=== PATIENT | male | born 1955 | race African-American/Black ===

== ENCOUNTER 2018-09-07 23:36 | Inpatient (IN) | payer MEDICARE ==
[~2018-09-07] VITALS: Ht 185.4 cm; Wt 131.5 kg
--- NOTE | 2018-09-08 | NUR ---
Pt brought in via ambulance from [facility] WITH C/O COMBATIVE AND BACK PAIN LOWER BACK AT 8/10 SINCE TODAY. Pt is combative with staff, yelling and using right arm to swing around, pt placed in soft R wrist restraints. placed order. Skin intact, no swelling, pulses palpable, will continue to monitor
[2018-09-08] MEDS ORDERED: CYMBALTA60 MG ORAL (00:28)
[2018-09-08] MEDS ORDERED: QUETIAPINE FUM100 MG ORAL (00:28)
[2018-09-08] MEDS ORDERED: TEMAZEPAM15 MG ORAL (00:28)
[2018-09-08] MEDS ORDERED: MELATONIN5 M2 SL (00:28)
[2018-09-08] MEDS ORDERED: LOVENOX10 MG SUBQ (00:43)
[2018-09-08] MEDS ORDERED: LEVEMIR FL100 UNIT/1 SUBQ (00:43)
[2018-09-08] MEDS ORDERED: MULTIVITAMINS1 EAC2 ORAL (00:43)
[2018-09-08] MEDS ORDERED: FLOMAX0.4 MG ORAL (00:43)
[2018-09-08] MEDS ORDERED: FENOFIBRATE54 MG ORAL (00:43)
[2018-09-08] MEDS ORDERED: VITAMIN D31000 UNI1 PO (00:43)
[2018-09-08] MEDS ORDERED: COREG25 MG ORAL (00:43)
[2018-09-08] MEDS ORDERED: GLIPIZIDE5 MG ORAL (00:43)
[2018-09-08] MEDS ORDERED: VITAMIN C500 M1 ORAL (00:43)
[2018-09-08] MEDS ORDERED: TRADJENTA5 MG PO (00:43)
[2018-09-08] MEDS ORDERED: TRILEPTAL600 MG PO (00:43)
[2018-09-08] MEDS ORDERED: METFORMIN HCL500 M1 ORAL (00:43)
[2018-09-08] MEDS ORDERED: LACTULOSE20 GM/301 ORAL (00:43)
[2018-09-08 01:00] VITALS: BP 145/98
[2018-09-08 01:28] LABS: EOSINOPHILS % (AUTO) 2.5 % (0.0-3.0); HEMOGLOBIN 16.3 G/DL (14.2-18.0); LYMPHOCYTES % (AUTO) 49.5 % (20.0-45.0); MEAN CORPUSCULAR VOLUME 93 FL (80-99); MONOCYTES % (AUTO) 5.8 % (1.0-10.0); NEUTROPHILS % (AUTO) 41.2 % (45.0-75.0); PLATELET COUNT 150 K/UL (150-450); RED BLOOD COUNT 5.25 M/UL (4.70-6.10); RED CELL DISTRIBUTION WIDTH 13.1 % (11.6-14.8); WHITE BLOOD COUNT 9.8 K/UL (4.8-10.8)
[2018-09-08 01:45] LABS: ANION GAP 8 mmol/L (5-15); BLOOD UREA NITROGEN 14 mg/dL (7-18); CALCIUM 9.3 MG/DL (8.5-10.1); CARBON DIOXIDE 27 MMOL/L (21-32); CHLORIDE 107 MMOL/L (98-107); CREATININE 1.5 MG/DL (0.55-1.30); POTASSIUM 3.4 MMOL/L (3.5-5.1); SODIUM 142 MMOL/L (136-145)
--- NOTE | 2018-09-08 01:53 | Emergency Room Report ---
History of Present Illness General Chief Complaint: Behavioral Complaint Source: EMS, PMD Present Illness HPI Patient is sent in by of his combativeness. In addition to that he has uncontrolled back pain. He's had a stroke 5 years ago. He has left-sided hemiparesis. It's unknown as to what medications he received prior to coming in. His doctor called and requested that we evaluate him and administer analgesia if indicated. According to S transport, patient O X 2. Patient not answering questions and no further history available. H/O CVA H/O seizures H/O diabetes - insulin and oral meds H/O psych - seroquel and respirdal Allergies: Coded Allergies: PENICILLINS (Verified Allergy, Unknown, 09/08/18) Patient History Limited by: medical condition Past Medical History: see triage record, old chart reviewed Social History: Denies: smoking, alcohol use Social History Narrative SNF Reviewed Nursing Documentation: PMH: Agreed; PSxH: Agreed Nursing Documentation-PMH Past Medical History Deferred: Pt Cognitively Impaired Hx Hypertension: Yes Hx COPD: Yes Hx Dialysis: No - BPH History Of Psychiatric Problem: Yes - bipolar, schizophrenia, anxiety Hx Cerebrovascular Accident: Yes - LEFT SIDE WEAKNESS Hx Seizures: Yes Review of Systems All Other Systems: limited Physical Exam Vital Signs Date Time Temp Pulse Resp B/P (MAP) Pulse Ox O2 Delivery O2 Flow Rate FiO2 09/07/18 23:59 98.1 104 16 169/103 (125) 92 Room Air General Appearance: non-toxic, lethargic, Chronically Ill Head: normocephalic, atraumatic Eyes: bilateral eye PERRL, bilateral eye Scleral Injection ENT: moist mucus membranes - no lingual trauma, + gag Neck: supple Respiratory: lungs clear, normal breath sounds Cardiovascular #1: regular rate, rhythm, no edema Cardiovascular #2: 2+ radial (R) Gastrointestinal: non tender, soft, decreased bowel sounds Genitourinary: no CVA tenderness Musculoskeletal: other - flaccid L - initially, not respond to back pain, but + increased combativeness with R SLR Neurologic: motor weakness - L hemiparesis, sensory deficit - L sided, but + R Psychiatric: other - stupor, but reacts to pain R with kicking and attempting to punch Skin: normal color, no rash Medical Decision Making Diagnostic Impression: Primary Impression: Altered level of consciousness Additional Impressions: Combative behavior Probable post-ictal UTI (urinary tract infection) Qualified Codes: N30.00 - Acute cystitis without hematuria Spinal stenosis Qualified Codes: M48.061 - Spinal stenosis, lumbar region without neurogenic claudication Schizophrenia Qualified Codes: F20.9 - Schizophrenia, unspecified ER Course The patient is sent in for evaluation of back pain and combativeness. Patient is unresponsive aside from painful stimulus on right side. It's impossible to be able to treat him with pain medication at this time. In addition to that due to his stupor we need to exclude bleed, fracture, electrolyte imbalance, sepsis, acute myocardial infarction amongst others. The patient will be evaluated with CT the head, chest x-ray lumbar CT and labs with urinalysis. The patient will be treated with IV hydration. A venous blood gas will be obtained and a CO2 monitor will be applied to the patient. The patient is combative and striking out with his right foot and hand. He is paralyzed on the left-hand side. Non-behavioral restraints ordered. EKG was sinus rhythm with premature supraventricular complexes. Nonspecific ST- T wave changes without acute injury. Labs unremarkable except for mild renal insufficiency, neg troponin, pyuria. Venous ABG with adequate ventilation. CT head with old stroke. Lumbar spine with spinal stenosis. Antibiotics begun for UTI. Completely alert and cooperative. Probable seizure with postictal combativeness. Will observe telemetry. Discussed with Dr. [place] operations trainer for Dr. Burleson. Consider check valproic acid level. Laboratory Tests Test 09/08/18 00:26 09/08/18 01:20 09/08/18 04:00 Venous Blood pH 7.491 Venous Blood Partial Pressure CO2 28.8 Venous Blood Partial Pressure O2 56 Venous Blood HCO3 21.5 Venous Blood Total Carbon Dioxide 28.8 Venous Bld O2 Saturation (Measured) Pending Venous Blood Oxygen Saturation 92.1 Venous Blood Base Excess -0.6 Methemoglobin 0.4 Sodium (Blood Gas) Pending White Blood Count 9.8 K/UL (4.8-10.8) Red Blood Count 5.25 M/UL (4.70-6.10) Hemoglobin 16.3 G/DL (14.2-18.0) Hematocrit 49.0 % (42.0-52.0) Mean Corpuscular Volume 93 FL (80-99) Mean Corpuscular Hemoglobin 31.0 PG (27.0-31.0) Mean Corpuscular Hemoglobin Concent 33.2 G/DL (32.0-36.0) Red Cell Distribution Width 13.1 % (11.6-14.8) Platelet Count 150 K/UL (150-450) Mean Platelet Volume 9.3 FL (6.5-10.1) Neutrophils (%) (Auto) 41.2 % (45.0-75.0) L Lymphocytes (%) (Auto) 49.5 % (20.0-45.0) H Monocytes (%) (Auto) 5.8 % (1.0-10.0) Eosinophils (%) (Auto) 2.5 % (0.0-3.0) Basophils (%) (Auto) 1.0 % (0.0-2.0) Sodium Level 142 MMOL/L (136-145) Potassium Level 3.4 MMOL/L (3.5-5.1) L Chloride Level 107 MMOL/L (98-107) Carbon Dioxide Level 27 MMOL/L (21-32) Anion Gap 8 mmol/L (5-15) Blood Urea Nitrogen 14 mg/dL (7-18) Creatinine 1.5 MG/DL (0.55-1.30) H Estimate Glomerular Filtration Rate 57.8 mL/min (>60) Glucose Level 130 MG/DL (74-106) H Calcium Level 9.3 MG/DL (8.5-10.1) Total Bilirubin 0.3 MG/DL (0.2-1.0) Aspartate Amino Transferase (AST) 23 U/L (15-37) Alanine Aminotransferase (ALT) 36 U/L (12-78) Alkaline Phosphatase 64 U/L (46-116) Total Creatine Kinase 159 U/L (26-308) Troponin I 0.038 ng/mL (0.000-0.056) Total Protein 8.5 G/DL (6.4-8.2) H Albumin 3.5 G/DL (3.4-5.0) Globulin 5.0 g/dL Albumin/Globulin Ratio 0.7 (1.0-2.7) L Thyroid Stimulating Hormone (TSH) 0.650 uiU/mL (0.358-3.740) Salicylates Level 4.6 ug/mL (2.8-20) Acetaminophen Level < 2 MCG/ML (10-30) L Serum Alcohol < 3 mg/dL Urine Color Pending Urine Appearance Pending Urine pH Pending Urine Specific [place] Pending Urine Protein Pending Urine Glucose (UA) Pending Urine Ketones Pending Urine Blood Pending Urine Nitrite Pending Urine Bilirubin Pending Urine Urobilinogen Pending Urine Leukocyte Esterase Pending Urine Opiates Screen Pending Urine Barbiturates Screen Pending Phencyclidine (PCP) Screen Pending Urine Amphetamines Screen Pending Urine Benzodiazepines Screen Pending Urine Cocaine Screen Pending Urine Marijuana (THC) Screen Pending EKG Diagnostic Results Rate: normal Rhythm: NSR ST Segments: no acute changes Rhythm Strip Diag. Results EP Interpretation: yes Rhythm: NSR, no PVC's, other - Premature supraventricular CT/MRI/US Diagnostic Results CT/MRI/US Diagnostic Results #1: Imaging Test Ordered: head Impression Impression: Negative for acute intracranial bleed or mass effect Large old right middle cerebral artery distribution infarct Generalized mild age-related volume loss CT/MRI/US Diagnostic Results #2: Imaging Test Ordered: L spine Impression Partial sacralization of L5. No fracture or malalignment. Severe DJD D within the lumbar spine. Spinal stenosis was pronounced L2-3 and L3-4. Last Vital Signs Date Time Temp Pulse Resp B/P (MAP) Pulse Ox O2 Delivery O2 Flow Rate FiO2 09/08/18 07:55 97.7 68 16 125/79 96 Room Air Status: improved Disposition: PLACE IN OBSERVATION Condition: Serious Scripts Risperidone* (RISPERDAL*) 2 Mg Tablet 2 MG ORAL QHS for 15 Days, TAB Prov: Arnie Medina MD 09/09/18 Divalproex Sodium (DIVALPROEX SODIUM ER) 500 Mg Tab.er.24h 1000 MG ORAL BEDTIME for 15 Days, TAB Prov: Arnie Medina MD 09/09/18 Referrals: Sole Burleson MD (PCP) Hansel Bautista MD September 08, 2018 01:53
[2018-09-08 01:57] LABS: ALANINE AMINOTRANSFERASE 36 U/L (12-78); ALBUMIN 3.5 G/DL (3.4-5.0); ALBUMIN/GLOBULIN RATIO 0.7 (1.0-2.7); ALKALINE PHOSPHATASE 64 U/L (46-116); ASPARTATE AMINO TRANSFERASE 23 U/L (15-37); BILIRUBIN,TOTAL 0.3 MG/DL (0.2-1.0); CREATINE KINASE 159 U/L (26-308)
--- NOTE | 2018-09-08 02:00 | NUR ---
ED Nurse Note: Pt resting, non-labored breathing, responsive to name. VSS, no sob. Will continue to monitor.
[2018-09-08 02:51] VITALS: BP 169/106
--- NOTE | 2018-09-08 04:05 | NUR ---
ED Nurse Note: Pt is awake and alert, requesting a sandwhich. Pt A&Ox4, denies sob, reports 8/10 back pain, MD notified. Tolerating fluids well. Voided using urinal.
[2018-09-08 04:25] LABS: APPEARANCE,URINE CLEAR; BILIRUBIN, URINE NEGATIVE (NEGATIVE); GLUCOSE, URINE (UA) NEGATIVE (NEGATIVE); KETONES,URINE NEGATIVE (NEGATIVE); LEUKOCYTE ESTERASE ,URINE 1+ (NEGATIVE); NITRITE,URINE NEGATIVE (NEGATIVE); PH,URINE 5 (4.5-8.0); PROTEIN,URINE 1+ (NEGATIVE); UROBILINOGEN,URINE NORMAL MG/DL (0.0-1.0)
[2018-09-08 04:28] LABS: COLOR,URINE YELLOW
[2018-09-08] MEDS ORDERED: OXcarbazepine 150mg tab ORAL ONE (04:30)
[2018-09-08] MEDS ORDERED: HYDROcodone/Acetamin 5/325 tab ORAL ONE (04:45)
[2018-09-08 05:11] VITALS: BP 134/84
[2018-09-08] MEDS ORDERED: cefTRIAXone 1 GM in NS 55 ML IVPB ONE (05:45)
--- NOTE | 2018-09-08 06:07 | NUR ---
ED Nurse Note: Pt sleeping, non-labored breathing noted. NO new orders at this time. Will continue to monitor
--- NOTE | 2018-09-08 06:24 | NUR ---
ED Nurse Note: Pt refused VRE and MRSA swab
--- NOTE | 2018-09-08 07:32 | NUR ---
HAND-OFF: Report given to DAVID Sanchez..
--- NOTE | 2018-09-08 07:45 | NUR ---
ED Nurse Note: Report given to DAVID Gao.
--- NOTE | 2018-09-08 07:55 | NUR ---
ED Nurse Note: Patient left unit in stable condition with 1 RN and 1 mental health technician.
--- NOTE | 2018-09-08 08:25 | NUR ---
NURSE NOTES: pt received from the ER, Laura HERNANDEZ gave report. Pt is awake v/s are stable. Pt on staff development educator no signs of distress at this time. Pt on room air. Bed padded, call light within reach. Bed locked and in lowest position. Will continue plan of care.
--- NOTE | 2018-09-08 09:01 | NUR ---
CASE MANAGEMENT:REVIEW 62 YR OLD MALE BIBA FROM [facility] CC: COMBATIVE AT ASSISTED SI: ALOC. UTI. COMBATIVE BEHAVIOR 98.0 104 16 169/103 93% ON RA CR+1.5 IS: 1L NS BOLUS IV ROCEPHIN CT SPINE CT HEAD : TO TELEMETRY
[2018-09-08] MEDS ORDERED: Milk of Magnesia 30ml Ud ORAL PRN (10:00)
[2018-09-08] MEDS ORDERED: HYDROcodone/Acetamin 5/325 tab ORAL PRN (10:15)
--- NOTE | 2018-09-08 10:31 | Diagnostic Imaging Report ---
Indications: Headache for one day Technique: Spiral acquisitions obtained through the brain. Angled axial and coronal 5 x 5 mm slices were reconstructed. Total dose length product 1509.8 mGycm. CTDI vol(s) 70.38 mGy. Dose reduction achieved using automated exposure control Comparison: None. Findings: There is a large area of encephalomalacia involving the right posterior frontal lobe, much of the right parietal lobe, and much of the right temporal lobe. This results in expected dilatation of the right lateral ventricle. There is also generalized age-related prominence of the ventricles and extra axial CSF spaces. No acute intracranial hemorrhage nor edema, mass effect, nor midline shift demonstrated. The orbits are unremarkable. The sinuses are clear. The mastoids are clear. The calvarium is intact. Impression: Negative for acute intracranial bleed or mass effect Large old right middle cerebral artery distribution infarct Generalized mild age-related volume loss This agrees with the preliminary interpretation provided overnight by [facility] teleradiology service. The CT scanner at [facility] is accredited by the [employer] and the scans are performed using protocols designed to limit radiation exposure to as low as reasonably achievable to attain images of sufficient resolution adequate for diagnostic evaluation.
--- NOTE | 2018-09-08 12:11 | Cardiology Report ---
APPROVED REPORT EKG Measurement Heart [id number] Sinus rhythm with premature supraventricular complexes Possible Anterior infarct, age undetermined Abnormal ECG
--- NOTE | 2018-09-08 13:40 | History and Physical ---
History of Present Illness General Date patient seen: September 08, 2018 Time patient seen: 11:00 Reason for Hospitalization: Behavioral Complaint Present Illness HPI 62 year old man with IDDM, COPD, HTN, BPH, history of CVA with left hemiparesis , epilepsy, schizophrenia, Bipolar, YOBANI who presents from T with AMS and behavioral disturbance. Patient will not engae with me, not answering questions or allowing me to examine him. Information obtain from chart. In ED he was combative, striking out with his right foot and hand, temporarily required restraints. Social Hx: Unable to obtain as patient not cooperating Family Hx: Unable to obtain as patient not cooperating Allergies: Coded Allergies: PENICILLINS (Verified Allergy, Unknown, 09/08/18) Medication History Scheduled Ascorbic Acid* (Vitamin C*), 500 MG ORAL DAILY, (Reported) Carvedilol (Coreg), 25 MG ORAL EVERY 12 HOURS, (Reported) Cholecalciferol (Vitamin D3) (Vitamin D3), 1,000 UNIT PO DAILY, (Reported) Duloxetine Hcl* (Cymbalta*), 60 MG ORAL QHS, (Reported) Enoxaparin* (Lovenox*), 30 MG SUBQ DAILY, (Reported) Fenofibrate (Fenofibrate), 54 MG ORAL DAILY, (Reported) Glipizide* (Glipizide*), 20 MG ORAL BID, (Reported) Insulin Detemir (Levemir Flexpen), 200 SUBQ BID, (Reported) Lactulose (Lactulose*), 30 ML ORAL DAILY, (Reported) Linagliptin (Tradjenta), 5 MG PO DAILY, (Reported) Metformin Hcl* (Metformin Hcl*), 500 MG ORAL TWICE A DAY, (Reported) Multivitamins* (Multivitamins*), 1 TAB ORAL DAILY, (Reported) Quetiapine Fumarate* (Seroquel*), 100 MG ORAL QHS, (Reported) Tamsulosin HCl (Flomax), 0.4 MG ORAL DAILY, (Reported) Temazepam (Temazepam*), 15 MG ORAL BEDTIME, (Reported) Scheduled PRN Melatonin (Melatonin), 6 MG SL BEDTIME PRN for Insomnia, (Reported) Oxcarbazepine* (Trileptal*), 150 MG PO BID PRN for For Seizures, (Reported) Patient History Limited by: medical condition History Provided By: Medical Record Healthcare decision maker Resuscitation status Advanced Directive on File Review of Systems ROS Narrative Unable to obtain as patient not cooperating Physical Exam Last 24 Hour Vital Signs Date Time Temp Pulse Resp B/P (MAP) Pulse Ox O2 Delivery O2 Flow Rate FiO2 09/08/18 07:55 97.7 68 16 125/79 96 Room Air 09/08/18 05:13 98.4 09/08/18 05:11 98.4 95 16 134/84 96 Room Air 09/08/18 02:51 98 16 Room Air 09/08/18 02:51 98.0 104 16 169/106 92 Room Air 09/08/18 01:00 98.5 98 16 145/98 92 Room Air 09/07/18 23:59 98.1 104 16 169/103 (125) 92 Room Air Laboratory Tests Test 09/08/18 00:26 09/08/18 01:20 09/08/18 04:00 Venous Blood pH 7.491 Venous Blood Partial Pressure CO2 28.8 Venous Blood Partial Pressure O2 56 Venous Blood HCO3 21.5 Venous Blood Total Carbon Dioxide 28.8 Venous Bld O2 Saturation (Measured) Pending Venous Blood Oxygen Saturation 92.1 Venous Blood Base Excess -0.6 Methemoglobin 0.4 Sodium (Blood Gas) Pending White Blood Count 9.8 K/UL (4.8-10.8) Red Blood Count 5.25 M/UL (4.70-6.10) Hemoglobin 16.3 G/DL (14.2-18.0) Hematocrit 49.0 % (42.0-52.0) Mean Corpuscular Volume 93 FL (80-99) Mean Corpuscular Hemoglobin 31.0 PG (27.0-31.0) Mean Corpuscular Hemoglobin Concent 33.2 G/DL (32.0-36.0) Red Cell Distribution Width 13.1 % (11.6-14.8) Platelet Count 150 K/UL (150-450) Mean Platelet Volume 9.3 FL (6.5-10.1) Neutrophils (%) (Auto) 41.2 % (45.0-75.0) L Lymphocytes (%) (Auto) 49.5 % (20.0-45.0) H Monocytes (%) (Auto) 5.8 % (1.0-10.0) Eosinophils (%) (Auto) 2.5 % (0.0-3.0) Basophils (%) (Auto) 1.0 % (0.0-2.0) Sodium Level 142 MMOL/L (136-145) Potassium Level 3.4 MMOL/L (3.5-5.1) L Chloride Level 107 MMOL/L (98-107) Carbon Dioxide Level 27 MMOL/L (21-32) Anion Gap 8 mmol/L (5-15) Blood Urea Nitrogen 14 mg/dL (7-18) Creatinine 1.5 MG/DL (0.55-1.30) H Estimat Glomerular Filtration Rate 57.8 mL/min (>60) Glucose Level 130 MG/DL (74-106) H Calcium Level 9.3 MG/DL (8.5-10.1) Total Bilirubin 0.3 MG/DL (0.2-1.0) Aspartate Amino Transf (AST/SGOT) 23 U/L (15-37) Alanine Aminotransferase (ALT/SGPT) 36 U/L (12-78) Alkaline Phosphatase 64 U/L (46-116) Total Creatine Kinase 159 U/L (26-308) Troponin I 0.038 ng/mL (0.000-0.056) Total Protein 8.5 G/DL (6.4-8.2) H Albumin 3.5 G/DL (3.4-5.0) Globulin 5.0 g/dL Albumin/Globulin Ratio 0.7 (1.0-2.7) L Thyroid Stimulating Hormone (TSH) 0.650 uiU/mL (0.358-3.740) Salicylates Level 4.6 ug/mL (2.8-20) Acetaminophen Level < 2 MCG/ML (10-30) L Serum Alcohol < 3 mg/dL Urine Color Yellow Urine Appearance Clear Urine pH 5 (4.5-8.0) Urine Specific [place] 1.025 (1.005-1.035) Urine Protein 1+ (NEGATIVE) H Urine Glucose (UA) Negative (NEGATIVE) Urine Ketones Negative (NEGATIVE) Urine Blood Negative (NEGATIVE) Urine Nitrite Negative (NEGATIVE) Urine Bilirubin Negative (NEGATIVE) Urine Urobilinogen Normal MG/DL (0.0-1.0) Urine Leukocyte Esterase 1+ (NEGATIVE) H Urine RBC 0-2 /HPF (0 - 0) H Urine WBC 5-10 /HPF (0 - 0) H Urine Squamous Epithelial Cells Occasional /LPF Urine Bacteria Few /HPF (NONE) Urine Opiates Screen Negative (NEGATIVE) Urine Barbiturates Screen Negative (NEGATIVE) Phencyclidine (PCP) Screen Negative (NEGATIVE) Urine Amphetamines Screen Negative (NEGATIVE) Urine Benzodiazepines Screen Negative (NEGATIVE) Urine Cocaine Screen Negative (NEGATIVE) Urine Marijuana (THC) Screen Negative (NEGATIVE) Height (Feet): 6 Height (Inches): 1.00 Weight (Pounds): 290 Medications Current Medications Medications (Trade) Dose Ordered Sig/Beti Route PRN Reason Start Time Stop Time Status Last Admin Dose Admin Acetaminophen (Tylenol) 650 mg Q4H PRN ORAL Mild Pain (Pain Scale 1-3) 09/08/18 10:00 10/08/18 09:59 Acetaminophen/ Hydrocodone Bitart ([place] 5/325) 1 tab Q4H PRN ORAL Moderate Pain (Pain Scale 4-6) 09/08/18 10:15 09/15/18 10:14 Dextrose (Dextrose 50%) 25 ml Q30M PRN IV Hypoglycemia 09/08/18 10:00 10/08/18 09:59 Dextrose (Dextrose 50%) 50 ml Q30M PRN IV Hypoglycemia 09/08/18 10:00 10/08/18 09:59 Diphenhydramine HCl (Benadryl) 25 mg Q6H PRN ORAL Itching/Pruritis 09/08/18 10:00 10/08/18 09:59 Divalproex Sodium (Depakote ER) 500 mg BEDTIME ORAL 09/08/18 21:00 10/08/18 20:59 Docusate Sodium (Colace) 100 mg EVERY 12 HOURS ORAL 09/08/18 21:00 10/08/18 20:59 Heparin Sodium (Porcine) (Heparin 5000 units/ml) 5,000 units EVERY 12 HOURS SUBQ 09/08/18 21:00 10/08/18 20:59 Magnesium Hydroxide (Mom) 30 ml HSPRN PRN ORAL Constipation 09/08/18 10:00 10/08/18 09:59 Ondansetron HCl (Zofran) 4 mg Q6H PRN IVP Nausea & Vomiting 09/08/18 10:00 10/08/18 09:59 Quetiapine Fumarate (SEROquel) 100 mg BEDTIME ORAL 09/08/18 21:00 10/08/18 20:59 Sodium Chloride 1,000 ml @ 300 mls/hr Q3H20M IV 09/08/18 00:30 10/08/18 00:29 09/08/18 06:55 Objective Narrative Unable to obtain as patient not cooperating Assessment/Plan Assessment/Plan: 62 year old man with IDDM, COPD, HTN, BPH, history of CVA with left hemiparesis , epilepsy, schizophrenia, Bipolar, YOBANI who presents from T with AMS and behavioral disturbance. #Acute encephalopathy, differential includes seizure, stroke, psychosis, CVA #History of epilepsy #History of bipolar, schizophrenia, YOBANI -admit to medical service -continue supportive care -Neurology and Psychiatry evals -continue Trileptal #IDDM #Morbid obesity -continue Levemir bid, Tradjenta, glipizide and metformin -lispro ss #HTN -continue Coreg #BPH -continue Flomax #COPD -Duoneb prn VTE PPx Lovenox Full Code I spent 70 minutes on this patient's case, and~35~minutes was dedicated to counseling and/or care coordination. Arnie Medina MD September 08, 2018 13:40
[2018-09-08] MEDS ORDERED: OXcarbazepine 150mg tab ORAL PRN (13:45)
--- NOTE | 2018-09-08 14:06 | Diagnostic Imaging Report ---
Indication: Shortness of breath Technique: One view of the chest Comparison: none Findings: Body habitus limits evaluation. The left costophrenic angle is not well-visualized; per technologist, patient difficult to position. The heart is enlarged. No definite acute infiltrates, effusions, or congestion. Scarring or atelectasis is seen in the left suprahilar region Impression: Limited exam, as described Cardiomegaly No gross acute pulmonary process
--- NOTE | 2018-09-08 16:59 | Diagnostic Imaging Report ---
Indications: Back pain for one day Technique: Spiral acquisitions obtained through the lumbar spine. Multiplanar reconstructions were generated. No IV contrast utilized. Total dose length product 2017.49 mGycm. CTDIvol(s) 29.57,29.57 mGy. Dose reduction achieved using automated exposure control Comparison: none Findings: Bony alignment is essentially normal. Vertebral body heights are preserved. No acute fractures. No dislocations. There is transitional lumbosacral anatomy, with only 4 normal-appearing nonrib-bearing lumbar-type vertebral bodies. The highest nonrib-bearing vertebral body will be referred to as L1 and the transitional lumbosacral segment as L5. At T12-L1, no significant disc bulge or protrusion, spinal stenosis, or neural foraminal stenosis. There is mild bilateral facet arthrosis. At L1-2, there is moderate to severe degenerative disc narrowing, with possibly some ankylosis of the disc. There is bilateral facet arthrosis. No significant spinal stenosis, neural foraminal stenosis, disc bulge or protrusion demonstrated. At L2-3, there is minimal degenerative disc narrowing. Circumferential annular bulge, facet and ligamentum flavum hypertrophy results in borderline narrowing of the spinal canal. There is mild neural foraminal stenosis bilaterally. There is mild bilateral facet arthrosis. At L3-4, there is moderate to severe narrowing of the disc. This is asymmetric, predominantly on the left side. There is associated extensive subchondral sclerosis as well as some subchondral cyst formation. There is bilateral facet arthrosis. There is apposition of the spinous processes. There is moderate narrowing of the left neural foramen. Posterior osteophytes and facet arthrosis result in moderate narrowing of the spinal canal. At L4-5, the disc space is preserved. There is mild circumferential annular bulge which, in combination with facet and ligamentum flavum hypertrophy may result in borderline narrowing of the spinal canal. There is minimal right and moderate left neural foraminal stenosis. There is bilateral facet arthrosis. At L5-S1, there is a transitional-type disc. No significant disc bulge or protrusion, spinal stenosis, or neural foraminal stenosis. Included extra spinal soft tissues are significant for the presence of a fusiform aneurysm of the infrarenal abdominal aorta. This measures up to 4.8 cm in diameter. No definite evidence of leakage or rupture. There is also a left renal cyst incidentally noted. There is an inferior vena cava filter. Impression: No acute bony trauma. Note transitional lumbosacral anatomy Extensive multilevel degenerative change as detailed above The above findings are in agreement with the [facility] preliminary report 4.8 cm abdominal aortic aneurysm. This was not described on the [facility] preliminary report. This finding was reported by phone to Dr. Bergman at approximately 1500 on 09/08/2018, and the discrepancy was reported to [facility] via their website The CT scanner at [facility] is accredited by the [employer] and the scans are performed using protocols designed to limit radiation exposure to as low as reasonably achievable to attain images of sufficient resolution adequate for diagnostic evaluation.
[2018-09-08] MEDS: GlipiZIDE 5mg tab ORAL SCH (17:25)
[2018-09-08] MEDS: HYDROcodone/Acetamin 10/325 tab ORAL PRN (17:26)
--- NOTE | 2018-09-08 19:45 | Consultation ---
DATE OF CONSULTATION: 09/08/2018 CONSULTING PHYSICIAN: Navin Doll M.D. HISTORY OF PRESENT ILLNESS: The patient is a 62-year-old male with a history of depression versus bipolar disorder who has been admitted to the hospital for combative behavior and lower back pain. The patient presents with anxiety, agitation, irritable mood, hostile towards the staff and doctors. The patient is having poor insight and judgment into the current situation he is in. The patient has a history of CVA with left side hemiparesis, epilepsy, schizophrenia. He is also having pain seeking behaviors. PAST PSYCHIATRIC HISTORY: The patient has a history of schizoaffective disorder, bipolar type. Has several psychiatric hospitalizations. Denied any suicide attempt. PAST MEDICAL HISTORY: CVA, BPH, hypertension, diabetes mellitus type YOBANI. ALLERGIES: Penicillin. SUBSTANCE ABUSE HISTORY: No known history of illicit drug use or alcohol. MENTAL STATUS EXAMINATION: The patient is alert, oriented times self, place, and situation. Mood is irritable. Affect is constricted, congruent with mood. Thought process is concrete. Thought content, no suicidal or homicidal ideation. Cognition is intact. ASSESSMENT: AXIS I: Schizoaffective disorder, bipolar type. AXIS II: Deferred. AXIS III: As above. AXIS IV: Low. AXIS V: 60. PLAN: 1. We will start the patient on Depakote 500 mg at bedtime. 2. We will start the patient on risperidone 2 mg p.o. at bedtime. 3. We will continue to readjust the medications. Navin Doll M.D. DR: JOAN JOB#: [id number] CC:
[2018-09-08 20:00] VITALS: BP 147/102
--- NOTE | 2018-09-08 20:37 | NUR ---
pt continuously asking for IV pain meds, Doc. Hightower spoke to pt. and changed the pain medication to Nucla but is not prescribing any IV pain meds
--- NOTE | 2018-09-08 20:40 | NUR ---
HAND-OFF: Report given to Darby Tee.
--- NOTE | 2018-09-08 20:45 | NUR ---
NURSE NOTES: Received report from DAVID De La Torre. Patient is awake lying semi-baca's watching TV; resting comfortably. No signs of acute distress noted; complains of pain. AOx3-4; able to make needs known. Checked IV site; patent and flushed. No erythema, bleeding, or infiltration noted. Urinal at bedside. Bed at lowest position, brakes on, siderails up x3. Siderails padded following seizure precautions. Call light within reach. Will continue to monitor.
[2018-09-08] MEDS: Docusate 100mg cap ORAL SCH ×2 (20:51→21:00)
[2018-09-08] MEDS: Carvedilol 25mg Tab ORAL SCH (20:51)
[2018-09-08] MEDS: Depakote ER 500mg tab ORAL SCH (20:51)
[2018-09-08] MEDS: Levemir Flexpen SUBQ SCH ×2 (20:54→20:56)
[2018-09-08] MEDS ORDERED: DULoxetine 30mg cap ORAL SCH (21:00)
[2018-09-08] MEDS ORDERED: Depakote ER 500mg tab ORAL SCH (21:00)
[2018-09-08] MEDS ORDERED: Heparin 5000 units/ml inj SUBQ SCH (21:00)
--- NOTE | 2018-09-08 21:00 | NUR ---
NURSE NOTES: Patient adamantly refusing to be repositioned for skin assessment. Risks and benefits explained x3; still refusing.
--- NOTE | 2018-09-08 21:47 | Consultation ---
History of Present Illness General Chief Complaint: Behavioral Complaint Present Illness [facility] Aram Witt is a 62 year old man with IDDM, COPD, HTN, BPH, history of CVA with left hemiparesis, epilepsy, schizophrenia, Bipolar, YOBANI who presents from [facility] with AMS and behavioral disturbance. Patient will not engae with me, not answering questions or allowing me to examine him. Information obtain from chart. In ED he was combative, striking out with his right foot and hand, temporarily required restraints. Allergies: Coded Allergies: PENICILLINS (Verified Allergy, Unknown, 09/08/18) Medication History Scheduled Ascorbic Acid* (Vitamin C*), 500 MG ORAL DAILY, (Reported) Carvedilol (Coreg), 25 MG ORAL EVERY 12 HOURS, (Reported) Cholecalciferol (Vitamin D3) (Vitamin D3), 1,000 UNIT PO DAILY, (Reported) Duloxetine Hcl* (Cymbalta*), 60 MG ORAL QHS, (Reported) Enoxaparin* (Lovenox*), 30 MG SUBQ DAILY, (Reported) Fenofibrate (Fenofibrate), 54 MG ORAL DAILY, (Reported) Glipizide* (Glipizide*), 20 MG ORAL BID, (Reported) Insulin Detemir (Levemir Flexpen), 200 SUBQ BID, (Reported) Lactulose (Lactulose*), 30 ML ORAL DAILY, (Reported) Linagliptin (Tradjenta), 5 MG PO DAILY, (Reported) Metformin Hcl* (Metformin Hcl*), 500 MG ORAL TWICE A DAY, (Reported) Multivitamins* (Multivitamins*), 1 TAB ORAL DAILY, (Reported) Quetiapine Fumarate* (Seroquel*), 100 MG ORAL QHS, (Reported) Tamsulosin HCl (Flomax), 0.4 MG ORAL DAILY, (Reported) Temazepam (Temazepam*), 15 MG ORAL BEDTIME, (Reported) Scheduled PRN Melatonin (Melatonin), 6 MG SL BEDTIME PRN for Insomnia, (Reported) Oxcarbazepine* (Trileptal*), 150 MG PO BID PRN for For Seizures, (Reported) Patient History Limited by: medical condition Healthcare decision maker Resuscitation status Full Code Advanced Directive on File Physical Exam Last 24 Hour Vital Signs Date Time Temp Pulse Resp B/P (MAP) Pulse Ox O2 Delivery O2 Flow Rate FiO2 5/30/19 20:51 72 147/102 09/08/18 20:00 97.9 72 20 147/102 (117) 94 09/08/18 17:56 97.7 09/08/18 15:18 Room Air 09/08/18 12:00 67 09/08/18 08:00 60 09/08/18 07:55 97.7 68 16 125/79 96 Room Air 09/08/18 05:13 98.4 09/08/18 05:11 98.4 95 16 134/84 96 Room Air 09/08/18 02:51 98 16 Room Air 09/08/18 02:51 98.0 104 16 169/106 92 Room Air 09/08/18 01:00 98.5 98 16 145/98 92 Room Air 09/07/18 23:59 98.1 104 16 169/103 (125) 92 Room Air Laboratory Tests Test 09/08/18 00:26 09/08/18 01:20 09/08/18 04:00 Venous Blood pH 7.491 Venous Blood Partial Pressure CO2 28.8 Venous Blood Partial Pressure O2 56 Venous Blood HCO3 21.5 Venous Blood Total Carbon Dioxide 28.8 Venous Bld O2 Saturation (Measured) Pending Venous Blood Oxygen Saturation 92.1 Venous Blood Base Excess -0.6 Methemoglobin 0.4 Sodium (Blood Gas) Pending White Blood Count 9.8 K/UL (4.8-10.8) Red Blood Count 5.25 M/UL (4.70-6.10) Hemoglobin 16.3 G/DL (14.2-18.0) Hematocrit 49.0 % (42.0-52.0) Mean Corpuscular Volume 93 FL (80-99) Mean Corpuscular Hemoglobin 31.0 PG (27.0-31.0) Mean Corpuscular Hemoglobin Concent 33.2 G/DL (32.0-36.0) Red Cell Distribution Width 13.1 % (11.6-14.8) Platelet Count 150 K/UL (150-450) Mean Platelet Volume 9.3 FL (6.5-10.1) Neutrophils (%) (Auto) 41.2 % (45.0-75.0) L Lymphocytes (%) (Auto) 49.5 % (20.0-45.0) H Monocytes (%) (Auto) 5.8 % (1.0-10.0) Eosinophils (%) (Auto) 2.5 % (0.0-3.0) Basophils (%) (Auto) 1.0 % (0.0-2.0) Sodium Level 142 MMOL/L (136-145) Potassium Level 3.4 MMOL/L (3.5-5.1) L Chloride Level 107 MMOL/L (98-107) Carbon Dioxide Level 27 MMOL/L (21-32) Anion Gap 8 mmol/L (5-15) Blood Urea Nitrogen 14 mg/dL (7-18) Creatinine 1.5 MG/DL (0.55-1.30) H Estimat Glomerular Filtration Rate 57.8 mL/min (>60) Glucose Level 130 MG/DL (74-106) H Calcium Level 9.3 MG/DL (8.5-10.1) Total Bilirubin 0.3 MG/DL (0.2-1.0) Aspartate Amino Transf (AST/SGOT) 23 U/L (15-37) Alanine Aminotransferase (ALT/SGPT) 36 U/L (12-78) Alkaline Phosphatase 64 U/L (46-116) Total Creatine Kinase 159 U/L (26-308) Troponin I 0.038 ng/mL (0.000-0.056) Total Protein 8.5 G/DL (6.4-8.2) H Albumin 3.5 G/DL (3.4-5.0) Globulin 5.0 g/dL Albumin/Globulin Ratio 0.7 (1.0-2.7) L Thyroid Stimulating Hormone (TSH) 0.650 uiU/mL (0.358-3.740) Salicylates Level 4.6 ug/mL (2.8-20) Acetaminophen Level < 2 MCG/ML (10-30) L Serum Alcohol < 3 mg/dL Urine Color Yellow Urine Appearance Clear Urine pH 5 (4.5-8.0) Urine Specific [place] 1.025 (1.005-1.035) Urine Protein 1+ (NEGATIVE) H Urine Glucose (UA) Negative (NEGATIVE) Urine Ketones Negative (NEGATIVE) Urine Blood Negative (NEGATIVE) Urine Nitrite Negative (NEGATIVE) Urine Bilirubin Negative (NEGATIVE) Urine Urobilinogen Normal MG/DL (0.0-1.0) Urine Leukocyte Esterase 1+ (NEGATIVE) H Urine RBC 0-2 /HPF (0 - 0) H Urine WBC 5-10 /HPF (0 - 0) H Urine Squamous Epithelial Cells Occasional /LPF Urine Bacteria Few /HPF (NONE) Urine Opiates Screen Negative (NEGATIVE) Urine Barbiturates Screen Negative (NEGATIVE) Phencyclidine (PCP) Screen Negative (NEGATIVE) Urine Amphetamines Screen Negative (NEGATIVE) Urine Benzodiazepines Screen Negative (NEGATIVE) Urine Cocaine Screen Negative (NEGATIVE) Urine Marijuana (THC) Screen Negative (NEGATIVE) Height (Feet): 6 Height (Inches): 1.00 Weight (Pounds): 290 Medications Current Medications Medications (Trade) Dose Ordered Sig/Beti Route PRN Reason Start Time Stop Time Status Last Admin Dose Admin Acetaminophen (Tylenol) 650 mg Q4H PRN ORAL Mild Pain (Pain Scale 1-3) 09/08/18 10:00 10/08/18 09:59 Acetaminophen/ Hydrocodone Bitart ([place]coe 10/325) 1 tab Q4H PRN ORAL PAIN 4-10 09/08/18 15:00 09/15/18 14:59 09/08/18 17:26 Ascorbic Acid (Vitamin C) 500 mg DAILY ORAL 09/09/18 09:00 10/09/18 08:59 Carvedilol (Coreg) 25 mg EVERY 12 HOURS ORAL 09/08/18 21:00 10/08/18 20:59 09/08/18 20:51 Dextrose (Dextrose 50%) 25 ml Q30M PRN IV Hypoglycemia 09/08/18 10:00 10/08/18 09:59 Dextrose (Dextrose 50%) 50 ml Q30M PRN IV Hypoglycemia 09/08/18 10:00 10/08/18 09:59 Diphenhydramine HCl (Benadryl) 25 mg Q6H PRN ORAL Itching/Pruritis 09/08/18 10:00 10/08/18 09:59 Divalproex Sodium (Depakote ER) 1,000 mg BEDTIME ORAL 09/08/18 21:00 10/08/18 20:59 09/08/18 20:51 Docusate Sodium (Colace) 100 mg EVERY 12 HOURS ORAL 09/08/18 21:00 10/08/18 20:59 Enoxaparin Sodium (Lovenox) 40 mg DAILY SUBQ 09/09/18 09:00 10/09/18 08:59 Fenofibrate (Tricor) 54 mg DAILY ORAL 09/09/18 09:00 10/09/18 08:59 Glipizide (Glucotrol) 20 mg BID ORAL 09/08/18 18:00 10/08/18 17:59 09/08/18 17:25 Insulin Detemir (Levemir) 20 units Q12HR SUBQ 09/08/18 21:00 10/08/18 20:59 Lactulose (Cephulac) 20 gm DAILY ORAL 09/09/18 09:00 10/09/18 08:59 Magnesium Hydroxide (Mom) 30 ml HSPRN PRN ORAL Constipation 09/08/18 10:00 10/08/18 09:59 Metformin HCl (Glucophage) 500 mg TWICE A DAY ORAL 09/09/18 09:00 10/09/18 08:59 Multivitamins (Multivitamins) 1 tab DAILY ORAL 09/09/18 09:00 10/09/18 08:59 Ondansetron HCl (Zofran) 4 mg Q6H PRN IVP Nausea & Vomiting 09/08/18 10:00 10/08/18 09:59 Oxcarbazepine (Trileptal) 150 mg BIDPRN PRN ORAL For Seizures 09/08/18 13:45 10/08/18 13:44 Risperidone (RisperDAL) 2 mg QHS ORAL 09/08/18 21:00 10/08/18 20:59 Tamsulosin HCl (Flomax) 0.4 mg DAILY ORAL 09/09/18 09:00 10/09/18 08:59 Temazepam (Restoril) 15 mg BEDTIME ORAL 09/08/18 21:00 09/15/18 20:59 09/08/18 20:51 Objective Narrative [facility] [address] [place] [address] [phone], fax [phone] Gino Whitmore M.D. Molding Machine Operator Helper Patient : ARAM WITT Referring Physician: Margie Delcid N.P. ID Number: [id number] Service Date: 09/09/18 : 1955 Report Date: 09/09/18 Gender: M Accession No.: [id number] Location: 2E Procedure: MRI Brain no Contrast Indication: Altered mental status Technique: The head was imaged in a 1.5 Allison magnet. Sequences attempted include sagittal and axial T1 FLAIR, axial T2 fast spin echo with fat saturation, axial T2 FLAIR, diffusion and ADC map. Comparison: None The patient could not tolerate the MRI examination. Only the EPI diffusion sequence was performed. This is a relatively motion insensitive sequence and is of diagnostic quality. There is no diffusion restriction identified. There is a large area of encephalomalacia involving right frontal temporal and parietal lobe consistent with an old MCA infarct. IMPRESSION: Incomplete study. No evidence of acute CVA. Dictated By: Murphy Tamayo MD Electronically Signed By: Murphy Tamayo MD Signed Date/Time 09/09/18 4142 CC: Margie Delcid N.P.; Sole Burleson MD Patient : ARAM WITT Referring Physician: Hansel Bautista MD ID Number: [id number] Service Date: 09/08/18 : 1955 Report Date: 09/08/18 Gender: M Accession No.: [id number] Location: 2E Procedure: CT Head no Contrast Indications: Headache for one day Technique: Spiral acquisitions obtained through the brain. Angled axial and coronal 5 x 5 mm slices were reconstructed. Total dose length product 1509.8 mGycm. CTDI vol(s) 70.38 mGy. Dose reduction achieved using automated exposure control Comparison: None. Findings: There is a large area of encephalomalacia involving the right posterior frontal lobe, much of the right parietal lobe, and much of the right temporal lobe. This results in expected dilatation of the right lateral ventricle. There is also generalized age-related prominence of the ventricles and extra axial CSF spaces. No acute intracranial hemorrhage nor edema, mass effect, nor midline shift demonstrated. The orbits are unremarkable. The sinuses are clear. The mastoids are clear. The calvarium is intact. Impression: Negative for acute intracranial bleed or mass effect Large old right middle cerebral artery distribution infarct Generalized mild age-related volume loss This agrees with the preliminary interpretation provided overnight by [facility]erad[facility] service. The CT scanner at [facility] is accredited by the [employer] and the scans are performed using protocols designed to limit radiation exposure to as low as reasonably achievable to attain images of sufficient resolution adequate for diagnostic evaluation. Dictated By: Jadiel Romero MD Electronically Signed By: Jadiel Romero MD Signed Date/Time 09/08/18 1025 Assessment/Plan Problem List: (1) History of CVA with residual deficit Assessment & Plan: [facility] [address] [place] [address] [phone], fax [phone] Gino Whitmore M.D. Molding Machine Operator Helper Patient : ARAM WITT Referring Physician: Hansel Bautista MD ID Number: [id number] Service Date: 09/08/18 : 1955 Report Date: 09/08/18 Gender: M Accession No.: [id number] Location: Procedure: CT Head no Contrast Indications: Headache for one day Technique: Spiral acquisitions obtained through the brain. Angled axial and coronal 5 x 5 mm slices were reconstructed. Total dose length product 1509.8 mGycm. CTDI vol(s) 70.38 mGy. Dose reduction achieved using automated exposure control Comparison: None. Findings: There is a large area of encephalomalacia involving the right posterior frontal lobe, much of the right parietal lobe, and much of the right temporal lobe. This results in expected dilatation of the right lateral ventricle. There is also generalized age-related prominence of the ventricles and extra axial CSF spaces. No acute intracranial hemorrhage nor edema, mass effect, nor midline shift demonstrated. The orbits are unremarkable. The sinuses are clear. The mastoids are clear. The calvarium is intact. Impression: Negative for acute intracranial bleed or mass effect Large old right middle cerebral artery distribution infarct Generalized mild age-related volume loss This agrees with the preliminary interpretation provided overnight by [facility] service. The CT scanner at [facility] is accredited by the [employer] and the scans are performed using protocols designed to limit radiation exposure to as low as reasonably achievable to attain images of sufficient resolution adequate for diagnostic evaluation. Dictated By: Jadiel Romero MD Electronically Signed By: Jadiel Romero MD Signed Date/Time 09/08/181024 CC: Hansel Bautista MD; Sole Burleson MD ICD Codes: I69.30 - Unspecified sequelae of cerebral infarction SNOMED: 053759198 (2) Psychosis ICD Codes: F29 - Unspecified psychosis not due to a substance or known physiological condition SNOMED: 29536242 (3) Acute encephalopathy ICD Codes: G93.40 - Encephalopathy, unspecified SNOMED: 02268998, 505323064 (4) UTI (urinary tract infection) ICD Codes: N39.0 - Urinary tract infection, site not specified SNOMED: 34134038 Qualifiers: Qualified Codes: N30.00 - Acute cystitis without hematuria (5) Altered level of consciousness ICD Codes: R40.4 - Transient alteration of awareness SNOMED: 4080729 (6) Combative behavior ICD Codes: R46.89 - Other symptoms and signs involving appearance and behavior SNOMED: 322902329 Margie Delcid N.P. September 08, 2018 21:47
--- NOTE | 2018-09-08 22:38 | NUR ---
NURSE NOTES: Called Dr. Arauz's exchange regarding patient's request for IV pain medication. Awaiting callback.
[2018-09-09] VITALS: BP 115/76
[2018-09-09] MEDS: HYDROcodone/Acetamin 10/325 tab ORAL PRN ×2 (01:49→19:13)
--- NOTE | 2018-09-09 04:35 | NUR ---
NURSE NOTES: Patient is awake lying semi-baca's; resting comfortably. No signs of acute distress noted; denies pain at this time.
--- NOTE | 2018-09-09 05:03 | NUR ---
NURSE NOTES: Patient strongly refused lab draw at this time. Risks and benefits explained; still refusing.
--- NOTE | 2018-09-09 06:12 | NUR ---
NURSE NOTES: Patient adamantly refuses to be repositioned or be cleaned, stating, "I'd let you know if I need to be changed." Risks and benefits explained; still refusing.
--- NOTE | 2018-09-09 06:28 | NUR ---
NURSE NOTES: Called Dr. Burleson's exchange regarding patient's request for IV pain medication. Awaiting callback.
--- NOTE | 2018-09-09 07:16 | NUR ---
CASE MANAGEMENT:REVIEW 09/09/18 SI:ACUTE ENCEPHALOPATHY BEHAVORIAL DISTURBANCES 97.7 64 20 115/76 95% ON RA IS: LOVENOX SQ QD LACTULOSE PO QD METFORMIN PO BID FLOMAX PO QD COREG PO Q12 DEPAKOTE PO QHS NORCO PO Q4HRS PRN : TELEMETRY STATUS DCP: FROM [facility] PLAN: MRI BRAIN EEG
--- NOTE | 2018-09-09 07:20 | NUR ---
HAND-OFF: Report given to DAVID De La Torre. Patient is awake lying semi-baca's; resting comfortably. In stable condition.
--- NOTE | 2018-09-09 07:24 | NUR ---
NURSE NOTES: recieved report from Darby HERNANDEZ. Pt sitting in bed having breakfast. Pt on registered nurse cardiac no signs of any distress at this time. Bed locked and in lowest position. Call light within reach. Will continue to monitor and follow plan of care. Pt still continues to request IV pain medication will ask doctor Katja again to change route.
[2018-09-09 08:00] VITALS: BP 134/93
[2018-09-09] MEDS ORDERED: LORazepam Inj 2mg/ml 1ml IV PRN (08:45)
[2018-09-09] MEDS: Levemir Flexpen SUBQ SCH ×2 (09:00→10:35)
[2018-09-09] MEDS: Enoxaparin 40mg Inj SUBQ SCH (09:00)
[2018-09-09] MEDS: Lactulose 20gm/30ml UDC ORAL SCH ×2 (09:00→10:37)
--- NOTE | 2018-09-09 10:04 | Consultation ---
Consult Note Consult Note ENTERED IN ERROR Quentin Mcgee MD September 09, 2018 10:04
[2018-09-09] MEDS: Docusate 100mg cap ORAL SCH ×2 (10:30→21:00)
[2018-09-09] MEDS: Carvedilol 25mg Tab ORAL SCH ×2 (10:32→22:52)
[2018-09-09] MEDS: GlipiZIDE 5mg tab ORAL SCH ×2 (10:33→19:13)
[2018-09-09] MEDS: Ascorbic Acid 500mg tab ORAL SCH (10:34)
[2018-09-09] MEDS: Tamsulosin 0.4mg cap ORAL SCH (10:34)
[2018-09-09] MEDS: metFORMIN 500mg tab ORAL SCH ×2 (10:34→19:13)
--- NOTE | 2018-09-09 11:05 | NUR ---
NURSE NOTES: Pharmacy called to say that Fenofibrate will not arrive until tomorrow doct was notified by pharmacy.
--- NOTE | 2018-09-09 11:07 | NUR ---
NURSE NOTES: pt stable left tele floor on [facility] for an MRI
[2018-09-09] MEDS ORDERED: LORazepam Inj 2mg/ml 1ml IV SCH (11:45)
[2018-09-09] MEDS ORDERED: RISPERDAL2 MG ORAL (13:18)
[2018-09-09] MEDS ORDERED: DIVALPROEX SOD500 M2 ORAL (13:18)
--- NOTE | 2018-09-09 13:20 | Diagnostic Imaging Report ---
Indication: Altered mental status Technique: The head was imaged in a 1.5 Allison magnet. Sequences attempted include sagittal and axial T1 FLAIR, axial T2 fast spin echo with fat saturation, axial T2 FLAIR, diffusion and ADC map. Comparison: None The patient could not tolerate the MRI examination. Only the EPI diffusion sequence was performed. This is a relatively motion insensitive sequence and is of diagnostic quality. There is no diffusion restriction identified. There is a large area of encephalomalacia involving right frontal temporal and parietal lobe consistent with an old MCA infarct. IMPRESSION: Incomplete study. No evidence of acute CVA.
--- NOTE | 2018-09-09 13:22 | Discharge Summary ---
Discharge Summary Hospital Course Date of Admission September 08, 2018 at 01:51 Date of Discharge 09/09/18 Admitting Diagnosis psychosis, back pain HPI Aram Witt is a 62 year old male who was admitted on September 08, 2018 at 01:51 for Psychosis,Back Pain Hospital Course 62 year old man with IDDM, COPD, HTN, BPH, history of CVA with left hemiparesis , epilepsy, schizophrenia, Bipolar, YOBANI who presents from [facility] with AMS and behavioral disturbance. Patient was seen by Psychiatry, started on Depakote and risperidone at bedtime. Seen by Neurology, MRI brain done, negative for acute stroke. Large old stroke seen. Patient's mentation improved and he will be discharged back to [facility] in stable condition Discharge Diagnoses #Acute encephalopathy, differential includes seizure, stroke, psychosis, CVA #History of epilepsy #History of bipolar, schizophrenia, YOBANI #IDDM #Morbid obesity -continue Levemir bid, Tradjenta, glipizide and metformin #HTN -continue Coreg #BPH -continue Flomax #COPD -Duoneb prn Time spent preparing discharge was 35 minutes Patient was initially thought to require a hospitalization requiring 2 midnights but due to rapid improvement in mentation he is being discharged sooner than anticipated Discharge Medications New Medications: Divalproex Sodium (Divalproex Sodium Er) 500 Mg Tab.er.24h 1000 MG ORAL BEDTIME for 15 Days, TAB Risperidone* (Risperdal*) 2 Mg Tablet 2 MG ORAL QHS for 15 Days, TAB Continued Medications: Ascorbic Acid* (Vitamin C*) 500 Mg Tablet 500 MG ORAL DAILY, #30 TAB 0 Refills Carvedilol (Coreg) 25 Mg Tablet 25 MG ORAL EVERY 12 HOURS, TAB Cholecalciferol (Vitamin D3) (Vitamin D3) 1,000 Unit Capsule 1000 UNIT PO DAILY, CAP Duloxetine Hcl* (Cymbalta*) 60 Mg Capsule.dr 60 MG ORAL QHS, CAP Enoxaparin* (Lovenox*) 30 Mg/0.3 Ml Inj 30 MG SUBQ DAILY, #30 EA 0 Refills Fenofibrate (Fenofibrate) 54 Mg Tablet 54 MG ORAL DAILY, #30 TAB 0 Refills Glipizide* (Glipizide*) 5 Mg Tablet 20 MG ORAL BID, TAB Insulin Detemir (Levemir Flexpen) 100 Unit/1 Ml Insuln.pen 200 SUBQ BID, #200 UNITS 0 Refills Lactulose (Lactulose*) 20 Gm/30 Ml Solution 30 ML ORAL DAILY, ML 0 Refills Linagliptin (Tradjenta) 5 Mg Tablet 5 MG PO DAILY, TAB Melatonin (Melatonin) 5 Mg Tab.subl 6 MG SL BEDTIME PRN for Insomnia, TAB Metformin Hcl* (Metformin Hcl*) 500 Mg Tablet 500 MG ORAL TWICE A DAY, TAB Multivitamins* (Multivitamins*) 1 Each Tablet 1 TAB ORAL DAILY, TAB 0 Refills Oxcarbazepine* (Trileptal*) 600 Mg Tablet 150 MG PO BID PRN for For Seizures, TAB Quetiapine Fumarate* (Seroquel*) 100 Mg Tablet 100 MG ORAL QHS, TAB Tamsulosin HCl (Flomax) 0.4 Mg Cap.er.24h 0.4 MG ORAL DAILY, CAP Temazepam (Temazepam*) 15 Mg Capsule 15 MG ORAL BEDTIME, #30 CAP 0 Refills Discharge Condition Upon Discharge: stable Discharge Disposition Patient was discharged to SNF Discharge Diagnoses: (1) Acute encephalopathy (2) History of CVA with residual deficit (3) Combative behavior Arnie Medina MD September 09, 2018 13:22
[2018-09-09 16:00] VITALS: BP 129/76
--- NOTE | 2018-09-09 17:16 | NUR ---
DISCHARGE PLAN DISCHARGE ORDER WAS JUST NOTED CALLED [facility] AND SPOKE WITH ALVARO JOHN, EVERYONE IN ADMISSIONS IS GONE FOR THE DAY SO SHE CANNOT GIVE A ASSIGNED ROOM NUMBER ALVRAO SUGGESTED WE CALL BACK TOMORROW MORNING AND SPEAK WITH AAMIR TRAN TO TELEMETRY CHARGE NURSE, MAY [facility] T: [phone] F: [phone]
[2018-09-09 20:00] VITALS: BP 136/85
--- NOTE | 2018-09-09 21:30 | NUR ---
NURSE NOTES: pt will be DC tomorrow case management is working on placement.
--- NOTE | 2018-09-09 21:31 | NUR ---
HAND-OFF: Report given to Reji HERNANDEZ. pt on stable condition and will DC tomorrow.
--- NOTE | 2018-09-09 21:32 | NUR ---
NURSE NOTES: Got report from Britt HERNANDEZ. Pt in stable condition. Denies any pain. No s/s of distress or discomfort noted. Pt resting in bed comfortably. Bed in low and locked position, call light within reach, bedside table within reach. Continue to monitor.
[2018-09-09] MEDS: Depakote ER 500mg tab ORAL SCH (22:51)
[2018-09-09] MEDS: Methocarbamol 750mg tab ORAL SCH (22:52)
--- NOTE | 2018-09-09 23:34 | Neurology Progress Note ---
Objective Physical Exam Last Vital Signs Date Time Temp Pulse Resp B/P (MAP) Pulse Ox O2 Delivery O2 Flow Rate FiO2 09/09/18 22:52 75 136/85 09/09/18 16:00 97.8 20 95 09/09/18 08:12 Room Air Neurologic Exam Imaging [facility] [address] [place] [address] [phone], fax [phone] Gino Whitmore M.D. Physician Practice Coordinator Patient : DARINEL ABEL Referring Physician: Margie Delcid N.P. ID Number: [id number] Service Date: 09/09/18 : 1955 Report Date: 09/09/18 Gender: M Accession No.: [id number] Location: 2E Procedure: MRI Brain no Contrast Indication: Altered mental status Technique: The head was imaged in a 1.5 Allison magnet. Sequences attempted include sagittal and axial T1 FLAIR, axial T2 fast spin echo with fat saturation, axial T2 FLAIR, diffusion and ADC map. Comparison: None The patient could not tolerate the MRI examination. Only the EPI diffusion sequence was performed. This is a relatively motion insensitive sequence and is of diagnostic quality. There is no diffusion restriction identified. There is a large area of encephalomalacia involving right frontal temporal and parietal lobe consistent with an old MCA infarct. IMPRESSION: Incomplete study. No evidence of acute CVA. Dictated By: Murphy Tamayo MD Electronically Signed By: Murphy Tamayo MD Signed Date/Time 09/09/18 1314 CC: Margie Delcid N.P.; Sole Burleson MD Patient : PHILIP ABELLM Nicky Referring Physician: Hansel Bautista MD ID Number: [id number] Service Date: 09/08/18 : 1955 Report Date: 09/08/18 Gender: M Accession No.: [id number] Location: 2E Procedure: CT L Spine no Contrast Indications: Back pain for one day Technique: Spiral acquisitions obtained through the lumbar spine. Multiplanar reconstructions were generated. No IV contrast utilized. Total dose length product 2017.49 mGycm. CTDIvol(s) 29.57,29.57 mGy. Dose reduction achieved using automated exposure control Comparison: none Findings: Bony alignment is essentially normal. Vertebral body heights are preserved. No acute fractures. No dislocations. There is transitional lumbosacral anatomy, with only 4 normal-appearing nonrib-bearing lumbar-type vertebral bodies. The highest nonrib-bearing vertebral body will be referred to as L1 and the transitional lumbosacral segment as L5. At T12-L1, no significant disc bulge or protrusion, spinal stenosis, or neural foraminal stenosis. There is mild bilateral facet arthrosis. At L1-2, there is moderate to severe degenerative disc narrowing, with possibly some ankylosis of the disc. There is bilateral facet arthrosis. No significant spinal stenosis, neural foraminal stenosis, disc bulge or protrusion demonstrated. At L2-3, there is minimal degenerative disc narrowing. Circumferential annular bulge, facet and ligamentum flavum hypertrophy results in borderline narrowing of the spinal canal. There is mild neural foraminal stenosis bilaterally. There is mild bilateral facet arthrosis. At L3-4, there is moderate to severe narrowing of the disc. This is asymmetric, predominantly on the left side. There is associated extensive subchondral sclerosis as well as some subchondral cyst formation. There is bilateral facet arthrosis. There is apposition of the spinous processes. There is moderate narrowing of the left neural foramen. Posterior osteophytes and facet arthrosis result in moderate narrowing of the spinal canal. At L4-5, the disc space is preserved. There is mild circumferential annular bulge which, in combination with facet and ligamentum flavum hypertrophy may result in borderline narrowing of the spinal canal. There is minimal right and moderate left neural foraminal stenosis. There is bilateral facet arthrosis. At L5-S1, there is a transitional-type disc. No significant disc bulge or protrusion, spinal stenosis, or neural foraminal stenosis. Included extra spinal soft tissues are significant for the presence of a fusiform aneurysm of the infrarenal abdominal aorta. This measures up to 4.8 cm in diameter. No definite evidence of leakage or rupture. There is also a left renal cyst incidentally noted. There is an inferior vena cava filter. Impression: No acute bony trauma. Note transitional lumbosacral anatomy Extensive multilevel degenerative change as detailed above The above findings are in agreement with the [facility] preliminary report 4.8 cm abdominal aortic aneurysm. This was not described on the [facility] preliminary report. This finding was reported by phone to Dr. Bergman at approximately 1500 on 09/08/2018, and the discrepancy was reported to [facility] via their website The CT scanner at [facility] is accredited by the [employer] and the scans are performed using protocols designed to limit radiation exposure to as low as reasonably achievable to attain images of sufficient resolution adequate for diagnostic evaluation. Dictated By: Jadiel Romero MD Electronically Signed By: Jadiel Romero MD Signed Date/Time 09/08/18 3581 CC: Hansel Bautista MD; Sole Burleson MD Impression/Recommendations Problems: (1) History of CVA with residual deficit Assessment & Plan: [facility] [address] [place] [address] [phone], fax [phone] Gino Whitmore M.D. Physician Practice Coordinator Patient : DARINEL ABEL Referring Physician: Hansel Bautista MD ID Number: [id number] Service Date: 09/08/18 : 1955 Report Date: 09/08/18 Gender: M Accession No.: [id number] Location: Procedure: CT Head no Contrast Indications: Headache for one day Technique: Spiral acquisitions obtained through the brain. Angled axial and coronal 5 x 5 mm slices were reconstructed. Total dose length product 1509.8 mGycm. CTDI vol(s) 70.38 mGy. Dose reduction achieved using automated exposure control Comparison: None. Findings: There is a large area of encephalomalacia involving the right posterior frontal lobe, much of the right parietal lobe, and much of the right temporal lobe. This results in expected dilatation of the right lateral ventricle. There is also generalized age-related prominence of the ventricles and extra axial CSF spaces. No acute intracranial hemorrhage nor edema, mass effect, nor midline shift demonstrated. The orbits are unremarkable. The sinuses are clear. The mastoids are clear. The calvarium is intact. Impression: Negative for acute intracranial bleed or mass effect Large old right middle cerebral artery distribution infarct Generalized mild age-related volume loss This agrees with the preliminary interpretation provided overnight by [facility] teleradiology service. The CT scanner at [facility] is accredited by the [employer] and the scans are performed using protocols designed to limit radiation exposure to as low as reasonably achievable to attain images of sufficient resolution adequate for diagnostic evaluation. Dictated By: Jadiel Romero MD Electronically Signed By: Jadiel Romero MD Signed Date/Time 09/08/18 1029 CC: Hansel Bautista MD; Sole Burleson MD (2) Psychosis (3) Acute encephalopathy (4) UTI (urinary tract infection) (5) Altered level of consciousness (6) Combative behavior Margie Delcid N.P. September 09, 2018 23:34
[2018-09-10 00:25] VITALS: BP 132/81
[2018-09-10 04:20] VITALS: BP 129/70
--- NOTE | 2018-09-10 07:20 | NUR ---
HAND-OFF: Report given to Robert HERNANDEZ. Endorsed plan of care.
--- NOTE | 2018-09-10 07:31 | Progress Note ---
DATE: 09/09/2018 T SUBJECTIVE: The patient is confused, ____. Poor insight and judgment into his mental condition. MENTAL STATUS EXAMINATION: The patient is alert and oriented x3. Mood is depressed. Affect is constricted, congruent with mood. Though process is concrete. Thought content, no suicidal or homicidal ideation. . . Navin Doll M.D. DR: YUNIER JOB#: [id number] CC:
[2018-09-10 08:00] VITALS: BP 135/82
--- NOTE | 2018-09-10 08:28 | NUR ---
NURSE NOTES: Received patient in bed ,asleep. easily arousable. Call light made within reach. Bed in lowest position. Will cont to monitor
[2018-09-10] MEDS: Docusate 100mg cap ORAL SCH (09:00)
[2018-09-10] MEDS: Levemir Flexpen SUBQ SCH (09:00)
[2018-09-10] MEDS: Tamsulosin 0.4mg cap ORAL SCH (09:00)
[2018-09-10] MEDS: metFORMIN 500mg tab ORAL SCH ×2 (09:00→17:13)
[2018-09-10] MEDS: Methocarbamol 750mg tab ORAL SCH ×3 (10:40→17:13)
[2018-09-10] MEDS: Ascorbic Acid 500mg tab ORAL SCH (10:41)
[2018-09-10] MEDS: Carvedilol 25mg Tab ORAL SCH (10:41)
[2018-09-10] MEDS: GlipiZIDE 5mg tab ORAL SCH ×2 (10:41→17:13)
[2018-09-10] MEDS: Enoxaparin 40mg Inj SUBQ SCH (10:44)
--- NOTE | 2018-09-10 11:27 | NUR ---
NURSE NOTES: Spoke with Ken from [facility] regarding patient acceptance to SNF, per him, Jacque in Admissions is not in and unable to confirm at this time. Dr. Georges made aware.
[2018-09-10 12:00] VITALS: BP 133/83
--- NOTE | 2018-09-10 13:34 | NUR ---
CASE MANAGEMENT: NOTE DC PLANNING TO [facility]. NO RESPONSE AT [phone] AFTER MULTIPLE ATTEMPTS. UNABLE TO LEAVE . PER ATTENDING NURSE DR FORREST HAS BEEN CONTACTED. AWAITING ROOM NUMBER.
--- NOTE | 2018-09-10 13:35 | NUR ---
NURSE NOTES: received phone call from Dr. Bergman who stated that he spoke with Rehab and WICHO from [facility] and stated that they will take pt after 6 pm.
--- NOTE | 2018-09-10 13:52 | NUR ---
NURSE NOTES: RN called [facility] and spoke with Dave HERNANDEZ who stated "We are still working on some discharges here and do not have a bed yet, please call back after an hour to an hour and a half". Dave HERNANDEZ received report from primary RN. Will follow up with SNF for discharge.
--- NOTE | 2018-09-10 13:53 | General Progress Note ---
Assessment/Plan Assessment/Plan: 62 year old man with IDDM, COPD, HTN, BPH, history of CVA with left hemiparesis , epilepsy, schizophrenia, Bipolar, YOBANI who presents from [facility] with AMS and behavioral disturbance. #Acute encephalopathy, differential includes seizure, stroke, psychosis, CVA #History of epilepsy #History of bipolar, schizophrenia, YOBANI -continue supportive care/psychiatric meds as outpatient #IDDM #Morbid obesity -continue Levemir bid, Tradjenta, glipizide and metformin as outpatient #HTN -continue Coreg #BPH -continue Flomax #COPD -Duoneb prn Stable for discharge to SNF today Subjective Date patient seen: Sep 10, 2018 Time patient seen: 13:02 ROS Limited/Unobtainable: No Cardiovascular: Denies: chest pain Respiratory: Denies: cough Gastrointestinal/Abdominal: Denies: abdominal pain Allergies: Coded Allergies: PENICILLINS (Verified Allergy, Unknown, 09/08/18) Subjective Follow up for acute encephalopathy which has resolved. Patient was to be discharged back to SNF but bed not available. Patient feels well, no new complaints. Stable for discharge to SNF once bed ready Objective Last 24 Hour Vital Signs Date Time Temp Pulse Resp B/P (MAP) Pulse Ox O2 Delivery O2 Flow Rate FiO2 09/10/18 12:00 65 09/10/18 12:00 97.9 71 18 133/83 (100) 97 09/10/18 10:41 67 135/82 09/10/18 09:00 Room Air 09/10/18 08:00 67 09/10/18 08:00 97.4 80 20 135/82 (99) 98 09/10/18 04:20 97.0 89 18 129/70 (89) 96 09/10/18 04:20 70 09/10/18 00:25 97.2 66 18 132/81 (98) 96 09/10/18 00:00 76 09/09/18 22:52 75 136/85 09/09/18 21:00 Room Air 09/09/18 20:00 97.7 75 20 136/85 (102) 97 09/09/18 20:00 76 09/09/18 16:00 97.8 20 129/76 (93) 95 09/09/18 16:00 65 Intake and Output 09/09/18 09/10/18 19:00 07:00 # Voids 2 Height (Feet): 6 Height (Inches): 1.00 Weight (Pounds): 290 General Appearance: no apparent distress, alert Neck: normal alignment Cardiovascular: normal rate, regular rhythm Respiratory/Chest: lungs clear, normal breath sounds Abdomen: non tender, soft Arnie Medina MD Sep 10, 2018 13:53
[2018-09-10] MEDS: HYDROcodone/Acetamin 10/325 tab ORAL PRN (15:10)
[2018-09-10 16:00] VITALS: BP 128/69
--- NOTE | 2018-09-10 16:26 | NUR ---
NURSE NOTES: Followed up with [facility] for room assignment. Per Mirian from [facility], pt will be going to room 401. Arranged [facility] pickup and spoke with Jomar - benji scheduled at 1830.
--- NOTE | 2018-09-10 19:07 | NUR ---
HAND-OFF: Report given to DAVID Mtz. No acute distress noted.
--- NOTE | 2018-09-10 19:27 | NUR ---
NURSE NOTES: Report received DAVID Jones. Pt in stable condition. Bed in the lowest position, bed brakes engaged, side rails up x3 and call light within reach. Will continue to monitor.
[2018-09-10 20:00] VITALS: BP 156/96
--- NOTE | 2018-09-10 21:30 | Electroencephalogram ---
DATE OF TRACIN09/09/2018 REQUESTING PHYSICIAN: Reggie Curry M.D. READING PHYSICIAN: Dustin Farrell M.D. PROCEDURE PERFORMED: Electroencephalogram. HISTORY: This EEG was performed on a 62-year-old gentleman with a history of a seizure disorder. The purpose of this EEG was to better delineate the type of seizure disorder. TECHNICAL NOTE: This EEG was performed on a [employer] Unit with electrodes placed on the scalp according to the International 10-20 system. [id number] and slfkg-ip-[id number] montages were used. The EEG was technically satisfactory and was performed in the awake and drowsy states. OBSERVATIONS: In the best awake state, the background activity consisted of 6-7 Hz posterior rhythmic theta activity. Drowsiness was characterized by slowing of the background in the slower theta range with intermixed 2.5-3.5 Hz delta activity. No definite focal abnormalities or epileptiform discharges were seen. IMPRESSION: This is an abnormal EEG characterized by slowing of the background in the 6-7 Hz theta range in the best awake state. COMMENT: This study is consistent with an encephalopathy of a moderate degree. Clinical correlation is recommended. Please note that no interictal discharges were seen on this EEG. Dustin Farrell M.D., M.S.P.H. DR: ZORAIDA JOB#: [id number] MTDD
--- NOTE | 2018-09-10 22:11 | NUR ---
NURSE NOTES: Pt is in stable condition. IV access removed, belongings verified, property assessment monitor removed. pt left unit via gurney around 2144.
== END 2018-09-10 21:45 | DRG 71 ==
LOC: EDBD 23:36 → EMR 09-08 01:38 → 2E 09-08 01:51 → EDBEDREQ 09-08 06:27 → 2E 09-09 12:28
DX: G93.49 Other encephalopathy (principal); I69.954 Hemiplegia and hemiparesis following unspecified cerebrovascular disease affecting left non-dominant side; F25.0 Schizoaffective disorder, bipolar type; N40.0 Benign prostatic hyperplasia without lower urinary tract symptoms; E11.9 Type 2 diabetes mellitus without complications; J44.9 Chronic obstructive pulmonary disease, unspecified; F41.1 Generalized anxiety disorder; E66.01 Morbid (severe) obesity due to excess calories; F91.8 Other conduct disorders; Z79.4 Long term (current) use of insulin; Z68.38 Body mass index [BMI] 38.0-38.9, adult
CPT/HCPCS: 36415; 70450; 70551; 71045; 72131; 80053; 80307; 80329; 81003; 82550; 82962; 84443; 84484; 85025; 87081; 93005; 95819; 96361; 96365; S5561